=== PATIENT | female | born 1935 | race Caucasian/White ===

== ENCOUNTER 2017-08-30 14:45 | Observation (INO) | payer MEDICARE ==
[~2017-08-30] VITALS: Ht 165.1 cm; Wt 68.6 kg
[2017-08-30 14:47] VITALS: BP 118/63; PULSE 69; RESP 16; TEMP 97.3; O2SAT 94
[2017-08-30] MEDS ORDERED: SODIUM CHLORIDE 0.9% FLUSH 10 ML FLUSH IV FLUSH PRN ×2 (15:15→17:30)
[2017-08-30] MEDS ORDERED: FAMOTIDINE 20 MG/2 ML VIAL IV PUSH ONE (15:15)
[2017-08-30] MEDS ORDERED: ONDANSETRON ODT 4 MG TAB PO ONE (15:15)
[2017-08-30] MEDS ORDERED: SODIUM CHLOR 0.9% 1000 ML INJ 1,000 ML IV SCH (15:15)
--- NOTE | 2017-08-30 15:33 | PD ---
HPI Chief Complaint: General Weakness Time Seen by Provider: 14:59 Travel History International Travel<30 days: No Contact w/Intl Traveler<30days: No Traveled to known affect area: No History of Present Illness HPI 82-year-old female complains of abdominal pain, nausea vomiting diarrhea. Patient states that the symptoms started 6 days ago. Patient states that abdominal pain cramping pain diffuse over the abdomen. Patient denies any pain radiation. Patient denies any fever chills. Patient denies any headache. Patient denies any chest pain or shortness of breath. Patient states that she has occasionally vomiting however mostly the severe nausea and diarrhea. Patient states that she noticed occasionally blood in the stool. Patient denies any back pain. Patient denies any vaginal discharge or bleeding. Patient states that she had generally malaise and weakness. Patient states that she has been using [id number] Imodium without relief. On a scale of 1-10 the pain is an 8. PFSH Past Medical History ?: Not Social History Tobacco Use: No Allergies-Medications (Allergen,Severity, Reaction): Coded Allergies: codeine (Verified Adverse Reaction, Unknown, 08/30/17) ABDOMINAL AND CHEST PAIN. Reported Meds & Prescriptions Reported Meds & Active Scripts Active Reported Imodium A-D (Loperamide HCl) 2 Mg Capsule 2 Mg PO DIRECTED PRN One capsule after each loose stool. Not to exceed 8 tablets per day. Hydrochlorothiazide 25 Mg Tab 25 Mg PO DAILY Paroxetine (Paroxetine HCl) 40 Mg Tab 40 Mg PO DAILY Vitamin E 200 Unit Cap 400 Units PO DAILY Donepezil 10 Mg Tab 10 Mg PO HS Calcium 500 +D (Calcium Carbonate-Cholecalciferol) 500-400 Mg-Unit Tab 1 Tab PO DAILY Metoprolol Succinate ER 24 HR (Metoprolol Succinate) 200 Mg Tab 200 Mg PO DAILY Gemfibrozil 600 Mg Tab 600 Mg PO BIDAC Take 30 minutes prior to breakfast and dinner. Review of Systems General / Constitutional: No: Fever Eyes: No: Visual changes HENT: No: Headaches Cardiovascular: No: Chest Pain or Discomfort Respiratory: No: Shortness of Breath Gastrointestinal: Positive: Nausea, Vomiting, Diarrhea, Abdominal Pain Genitourinary: No: Dysuria Musculoskeletal: No: Pain Skin: No Rash Neurologic: No: Weakness Psychiatric: No: Depression Endocrine: No: Polydipsia Hematologic/Lymphatic: No: Easy Bruising Physical Exam Narrative GENERAL: Well-nourished, well-developed patient. SKIN: Focused skin assessment warm/dry. HEAD: Normocephalic. EYES: No scleral icterus. No injection or drainage. NECK: Supple, trachea midline. No JVD or lymphadenopathy. CARDIOVASCULAR: Regular rate and rhythm without murmurs, gallops, or rubs. RESPIRATORY: Breath sounds equal bilaterally. No accessory muscle use. GASTROINTESTINAL: Abdomen soft, nondistended. Patient has mild diffuse tenderness over the abdomen. No rebound tenderness. No mass. Rectal exam Hemoccult trace positive. MUSCULOSKELETAL: No cyanosis, or edema. BACK: Nontender without obvious deformity. No CVA tenderness. Neurologic exam normal. Data Data Last Documented VS Vital Signs Date Time Temp Pulse Resp B/P (MAP) Pulse Ox O2 Delivery O2 Flow Rate FiO2 08/30/17 17:13 67 16 113/60 (77) 96 Room Air 08/30/17 14:47 97.3 Orders Orders Complete Blood Count With Diff (08/30/17 15:15) Comprehensive Metabolic Panel (08/30/17 15:15) Lipase (08/30/17 15:15) Prothrombin Time / Inr (Pt) (08/30/17 15:15) Act Partial Throm Time (Ptt) (08/30/17 15:15) Urinalysis - C+S If Indicated (08/30/17 15:15) Iv Access Insert/Monitor (08/30/17 15:15) Ecg Monitoring (08/30/17 15:15) Oximetry (08/30/17 15:15) Sodium Chlor 0.9% 1000 Ml Inj (Ns 1000 M (08/30/17 15:15) Sodium Chloride 0.9% Flush (Ns Flush) (08/30/17 15:15) Famotidine Inj (Pepcid Inj) (08/30/17 15:15) Ondansetron Odt (Zofran Odt) (08/30/17 15:15) Potassium Chloride (Kcl) (08/30/17 16:00) Potassium Chlor 20 Meq Premix (Kcl 20 Me (08/30/17 16:00) Ct Abd/Pel W/O Iv Contrast (08/30/17 16:50) Place In Observation (08/30/17 ) Vital Signs (Adult) Q4H (08/30/17 17:26) Neuro Checks Q4H (08/30/17 17:26) Activity Oob With Assistance (08/30/17 17:26) Diet Regular Basic (08/30/17 Dinner) Sodium Chlor 0.9% 1000 Ml Inj (Ns 1000 M (08/30/17 17:26) Sodium Chloride 0.9% Flush (Ns Flush) (08/30/17 17:30) Sodium Chloride 0.9% Flush (Ns Flush) (08/30/17 21:00) Acetaminophen (Tylenol) (08/30/17 17:30) Metoclopramide Inj (Reglan Inj) (08/30/17 17:30) Basic Metabolic Panel (Bmp) (08/31/17 06:00) Complete Blood Count With Diff (08/31/17 06:00) Pt Request For Service (08/30/17 17:26) Scd Bilateral/Knee High DECLAN.BID (08/30/17 17:26) Naloxone Inj (Narcan Inj) (08/30/17 17:30) Magnesium Hydroxide Liq (Milk Of Magnesi (08/30/17 17:30) Giardia Antigen (Stool) (08/30/17 17:30) C Diff Toxin Pcr (08/30/17 17:30) Enteric Path (Stool) (08/30/17 17:30) Admit Order (Ed Use Only) (08/30/17 17:34) Labs Laboratory Tests Test 08/30/17 15:20 White Blood Count 4.0 TH/MM3 Red Blood Count 4.27 MIL/MM3 Hemoglobin 12.4 GM/DL Hematocrit 37.7 % Mean Corpuscular Volume 88.3 FL Mean Corpuscular Hemoglobin 29.1 PG Mean Corpuscular Hemoglobin Concent 32.9 % Red Cell Distribution Width 12.3 % Platelet Count 206 TH/MM3 Mean Platelet Volume 8.8 FL CBC Comment AUTO DIFF Differential Total Cells Counted 100 Neutrophils % (Manual) 64 % Band Neutrophils % 7 % Lymphocytes % 11 % Monocytes % 18 % Neutrophils # (Manual) 2.8 TH/MM3 Differential Comment FINAL DIFF MANUAL Platelet Estimate NORMAL Platelet Morphology Comment NORMAL Prothrombin Time 11.7 SEC Prothromb Time International Ratio 1.2 RATIO Activated Partial Thromboplast Time 28.5 SEC Blood Urea Nitrogen 28 MG/DL Creatinine 1.30 MG/DL Random Glucose 117 MG/DL Total Protein 8.7 GM/DL Albumin 4.0 GM/DL Calcium Level 9.8 MG/DL Alkaline Phosphatase 81 U/L Aspartate Amino Transf (AST/SGOT) 44 U/L Alanine Aminotransferase (ALT/SGPT) 24 U/L Total Bilirubin 0.8 MG/DL Sodium Level 134 MEQ/L Potassium Level 2.6 MEQ/L Chloride Level 98 MEQ/L Carbon Dioxide Level 25.8 MEQ/L Anion Gap 10 MEQ/L Estimat Glomerular Filtration Rate 39 ML/MIN Lipase 212 U/L [facility] Medical Decision Making Medical Screen Exam Complete: Yes Emergency Medical Condition: Yes Interpretation(s) Last Impressions Abdomen/Pelvis CT 08/30/17 1650 Signed Impressions: CONCLUSION: 1. Scattered air-fluid levels very nonspecific otherwise negative. 2. Do not see evidence for inflammatory changes 3. Do not see ascites. 1721 PM. CBC WBC 4.0. Hemoglobin 12.4 hematocrit 37.7. Normal differential. Potassium 2.6. BUN 28. Creatinine 1.30. AST 44. Differential Diagnosis Differential diagnosis including gastroenteritis, colitis, dehydration, electrolyte imbalance Narrative Course 82-year-old female complains of abdominal pain with nausea vomiting diarrhea. Normal saline solution 1 L IV bolus. KCl 40 mEq p.o. given. KCl 20 mEq IV given. Diagnosis Primary Impression: Gastroenteritis Additional Impressions: Hypokalemia Acute kidney injury Admitting Information Admitting Physician Requests: Observation Scripts Potassium Chloride ER (Potassium Chloride ER) 10 Meq Cap 10 MEQ PO DAILY for supplementation for 30 Days, #30 CAP Prov: Concepción Rene 09/01/17 Pantoprazole (Pantoprazole) 40 Mg Tab 40 MG PO DAILY for GI prophylaxis for 14 Days, #14 TAB Prov: Concepción Rene 09/01/17 Kevon Hardin MD Aug 30, 2017 15:33
[2017-08-30] MEDS ORDERED: PARO40TA2 PO (15:42)
[2017-08-30] MEDS ORDERED: HYDR25TA5 PO (15:42)
[2017-08-30] MEDS ORDERED: LOPE-1 PO (15:42)
[2017-08-30] MEDS ORDERED: CALC1TAB12 PO (15:42)
[2017-08-30] MEDS ORDERED: DONE10TA7 PO (15:42)
[2017-08-30] MEDS ORDERED: GEMF600T PO (15:42)
[2017-08-30] MEDS ORDERED: METO-393 PO (15:42)
[2017-08-30] MEDS ORDERED: VITA200C3 PO (15:42)
[2017-08-30 15:46] LABS: HEMATOCRIT 37.7 % (35.0-46.0); HEMOGLOBIN 12.4 GM/DL (11.6-15.3); MEAN CELL VOLUME 88.3 FL (80.0-100.0); MEAN CORPUSCULAR HEMOGLOBIN 29.1 PG (27.0-34.0); MEAN CORPUSCULAR HGB CONC 32.9 % (32.0-36.0); MEAN PLATELET VOLUME 8.8 FL (7.0-11.0); PLATELET COUNT 206 TH/MM3 (150-450); RED BLOOD COUNT 4.27 MIL/MM3 (4.00-5.30); RED CELL DISTRIBUTION WIDTH 12.3 % (11.6-17.2)
[2017-08-30 15:51] VITALS: BP 114/65; PULSE 65; RESP 18; O2SAT 95
[2017-08-30 15:51] LABS: BICARBONATE 25.8 MEQ/L (21.0-32.0); BLOOD UREA NITROGEN 28 MG/DL (7-18); CALCIUM 9.8 MG/DL (8.5-10.1); CHLORIDE 98 MEQ/L (98-107); GLUCOSE,RANDOM 117 MG/DL (74-106); SODIUM (NA) 134 MEQ/L (136-145)
[2017-08-30 15:52] LABS: INTERNATIONAL NORMALIZED RATIO 1.2 RATIO; PROTHROMBIN TIME - PATIENT 11.7 SEC (9.8-11.6)
[2017-08-30] MEDS ORDERED: POTASSIUM CHLORIDE 20 MEQ CONTROLLED RELEASE TAB PO ONE (16:00)
[2017-08-30] MEDS ORDERED: POTASSIUM CHLOR 20 MEQ PREMIX 100 ML IV ONE (16:00)
[2017-08-30 16:20] LABS: BANDS 7 % (0-6); LYMPHOCYTES 11 % (9-44); MONOCYTES 18 % (0-8); NEUTROPHIL # MANUAL DIFF 2.8 TH/MM3 (1.8-7.7); POLYS (SEG NEUTROPHILS) 64 % (16-70)
[2017-08-30 16:48] LABS: ALKALINE PHOSPHATASE 81 U/L (45-117); ALT (GPT) 24 U/L (10-53); AST (GOT) 44 U/L (15-37); GLOMERULAR FILTRATION RATE 39 ML/MIN (>89); TOTAL BILIRUBIN ADULT 0.8 MG/DL (0.2-1.0); TOTAL PROTEIN 8.7 GM/DL (6.4-8.2)
--- NOTE | 2017-08-30 17:12 | RADRPT ---
EXAM DATE: 08/30/2017 5:07 PM EDT AGE/SEX: 82 years / Female INDICATIONS: Diffuse abdominal pain. Nausea, vomiting, diarrhea and weakness. CLINICAL DATA: This is the patient's initial encounter. Patient reports that signs and symptoms have been present for 4 - 6 days and indicates a pain score of 8/10. MEDICAL/SURGICAL HISTORY: Hypercholesterolemia. Hypertension. Dementia. None. RADIATION DOSE: 13.07 CTDI (mGy) COMPARISON: No prior exams available for comparison. TECHNIQUE: Multiple contiguous axial images were obtained through the abdomen. Images were obtained using multiple row detector helical technique. Using dose reduction techniques, radiation dose was ke pt as low as reasonably achievable to obtain optimal diagnostic quality images. FINDINGS: The lower lungs are clear. There is no pericardial effusion The liver is free of focal defects. There are no gallstones identified by CT Pancreas and spleen appear normal Adrenal glands are unremarkable Right and left kidneys appear normal There are no inflammatory changes in the abdomen In the pelvis there are scattered air-fluid levels present in the colon in a nonspecific fashion. There are no inflammatory changes. There is no free air. There is no free fluid Extensive vascular calcifications are noted Degenerative changes are seen in the lower lumbar spine and both SI joints Total hip create significant artifact across the pelvis. CONCLUSION: 1. Scattered air-fluid levels very nonspecific otherwise negative. 2. Do not see evidence for inflammatory changes 3. Do not see ascites. Electronically signed by: Andre Yoo MD 08/30/2017 5:10 PM EDT
[2017-08-30 17:13] VITALS: BP 113/60; PULSE 67; RESP 16; O2SAT 96
[2017-08-30] MEDS ORDERED: NALOXONE HCL 0.4 MG/ML AMP IV PUSH PRN (17:30)
[2017-08-30] MEDS ORDERED: MAGNESIUM HYDROXIDE SUSP 30 ML CUP PO PRN (17:30)
[2017-08-30] MEDS ORDERED: ACETAMINOPHEN 325 MG TAB PO PRN (17:30)
[2017-08-30] MEDS ORDERED: METOCLOPRAMIDE HCL 10 MG/2 ML VIAL IV PUSH PRN (17:30)
[2017-08-30] MEDS: SODIUM CHLOR 0.9% 1000 ML INJ 1,000 ML IV SCH (17:51)
[2017-08-30 19:23] VITALS: BP 120/70
[2017-08-30 20:00] VITALS: BP 117/55; PULSE 61; PULSE 63; RESP 20; TEMP 97.3; O2SAT 96
[2017-08-30] MEDS: SODIUM CHLORIDE 0.9% FLUSH 10 ML FLUSH IV FLUSH SCH (21:00)
[2017-08-31] VITALS (7 sets, daily range): BP systolic 121–141; BP diastolic 60–75; PULSE 58–78; RESP 20; TEMP 96.1–98.4; O2SAT 94–98
[2017-08-31] MEDS: SODIUM CHLOR 0.9% 1000 ML INJ 1,000 ML IV SCH ×3 (03:03→23:48)
[2017-08-31 07:32] LABS: HEMATOCRIT 30.9 % (35.0-46.0); HEMOGLOBIN 10.8 GM/DL (11.6-15.3); MEAN CELL VOLUME 86.2 FL (80.0-100.0); MEAN CORPUSCULAR HEMOGLOBIN 30.1 PG (27.0-34.0); MEAN CORPUSCULAR HGB CONC 34.9 % (32.0-36.0); MEAN PLATELET VOLUME 9.1 FL (7.0-11.0); PLATELET COUNT 155 TH/MM3 (150-450); RED BLOOD COUNT 3.58 MIL/MM3 (4.00-5.30); RED CELL DISTRIBUTION WIDTH 12.4 % (11.6-17.2); WHITE BLOOD COUNT 2.8 TH/MM3 (4.0-11.0)
[2017-08-31 07:48] LABS: BICARBONATE 26.5 MEQ/L (21.0-32.0); CALCIUM 8.7 MG/DL (8.5-10.1); CREATININE 0.68 MG/DL (0.50-1.00)
--- NOTE | 2017-08-31 08:34 | HHI.HP ---
[facility] Service [facility] Primary Care Physician Toribio Hoff MD Admission Diagnosis Gastroenteritis. Hypokalemia. Acute kidney injury. Diagnoses: (1) Acute kidney injury (2) Gastroenteritis (3) Hypokalemia Chief Complaint: Abdominal pain Nausea and vomiting Diarrhea Travel History International Travel<30 Days: No Contact w/Intl Traveler <30 Da: No Traveled to Known Affected Are: No History of Present Illness This is a pleasant 82-year-old female patient with a known medical history of hypertension, hyperlipidemia and depression who presented to the ED with complaints of abdominal pain, nausea, vomiting and diarrhea 6 days. Patient states that last week she noticed her cramping began diffusely over her abdomen and has been unable to keep anything down for the past 5 days. Patient states that the pain in her abdomen is cramping in nature, rated 8 out of 10 on its worst on pain scale, and intermittently came and gone throughout the week. Patient does admit to recent blood in her stool, denies any black stools. Does admit to subjective fevers and chills at home although did not check her temperature. Does not follow with a instrument repair specialist. Denies ever having a colonoscopy or EGD in the past. Denies any recent antibiotic use. Denies any recent chest pain, shortness of breath, dysuria. Patient does state that she has been taking Imodium at home for the diarrhea which has been ineffective. PCP is Dr. Hoff, patient denies any new changes to her medicines. Upon presentation hemoglobin is stable although has dropped from 12.4-10.8 overnight. All symptoms have improved with resolution of abdominal pain and no further nausea or vomiting. Patient has been tolerating p.o. intake this morning. Denies any further bleeding in her stool. Review of Systems Constitutional: COMPLAINS OF: Fatigue, Fever, Chills, DENIES: Diaphoretic episodes Eyes: DENIES: Blurred vision, Diplopia, Eye pain Respiratory: DENIES: Cough, Sputum production, Shortness of breath Cardiovascular: DENIES: Chest pain, Palpitations Gastrointestinal: COMPLAINS OF: Abdominal pain, Bloody stools, Diarrhea, Nausea , Vomiting, DENIES: Black stools, Constipation Musculoskeletal: DENIES: Joint pain Hematologic/lymphatic: DENIES: Bruising Psychiatric: COMPLAINS OF: Anxiety Except as stated in HPI: all other systems reviewed are Neg Past Family Social History Past Medical History Hypertension Depression Hyperlipidemia Past Surgical History Left bunion repair Right hip replacement Bilateral knee replacement Bilateral carpal tunnel repair Right forearm skin cancer removal Reported Medications Active Reported Imodium A-D (Loperamide HCl) 2 Mg Capsule 2 Mg PO DIRECTED PRN One capsule after each loose stool. Not to exceed 8 tablets per day. Hydrochlorothiazide 25 Mg Tab 25 Mg PO DAILY Paroxetine (Paroxetine HCl) 40 Mg Tab 40 Mg PO DAILY Vitamin E 200 Unit Cap 400 Units PO DAILY Donepezil 10 Mg Tab 10 Mg PO HS Calcium 500 +D (Calcium Carbonate-Cholecalciferol) 500-400 Mg-Unit Tab 1 Tab PO DAILY Metoprolol Succinate ER 24 HR (Metoprolol Succinate) 200 Mg Tab 200 Mg PO DAILY Gemfibrozil 600 Mg Tab 600 Mg PO BIDAC Take 30 minutes prior to breakfast and dinner. Allergies: Coded Allergies: codeine (Verified Adverse Reaction, Unknown, 08/30/17) ABDOMINAL AND CHEST PAIN. Active Ordered Medications Current Medications Medications (Trade) Dose Ordered Sig/Elaine Route Start Time Stop Time Status Last Admin Sodium Chloride 1,000 ml @ 100 mls/hr Q10H IV 08/30/17 17:26 08/31/17 03:03 (NS Flush) 2 ml UNSCH PRN IV FLUSH 08/30/17 17:30 (NS Flush) 2 ml BID IV FLUSH 08/30/17 21:00 08/31/17 09:45 (Tylenol) 650 mg Q4H PRN PO 08/30/17 17:30 (Reglan Inj) 5 mg Q6H PRN IV PUSH 08/30/17 17:30 (Narcan Inj) 0.4 mg UNSCH PRN IV PUSH 08/30/17 17:30 (Milk Of Magnesia Liq) 30 ml Q12H PRN PO 08/30/17 17:30 (Aricept) 10 mg HS PO 08/31/17 21:00 (Lopid) 600 mg BIDAC PO 08/31/17 16:00 (Hydrodiuril) 25 mg DAILY PO 08/31/17 09:00 08/31/17 09:44 (Paxil) 40 mg DAILY PO 08/31/17 09:00 08/31/17 09:44 (Oscal-D 250-125) 250 mg DAILY PO 08/31/17 09:00 08/31/17 09:44 (Toprol Xl) 200 mg DAILY PO 08/31/17 09:00 08/31/17 09:43 (Colyte Liq) 4,000 ml ONCE ONCE PO 08/31/17 16:00 08/31/17 16:01 Family History Denies any significant family medical history. Social History Denies any tobacco, alcohol or illicit drug use. Physical Exam Vital Signs Vital Signs Date Time Temp Pulse Resp B/P (MAP) Pulse Ox O2 Delivery O2 Flow Rate FiO2 08/31/17 07:17 96.5 75 20 141/63 (89) 94 08/31/17 04:00 98.4 58 20 95 08/31/17 00:00 96.1 60 20 133/63 (86) 98 08/30/17 20:00 97.3 63 20 117/55 (75) 96 08/30/17 20:00 61 08/30/17 19:23 69 16 120/70 (87) 96 08/30/17 17:13 67 16 113/60 (77) 96 Room Air 08/30/17 15:51 65 18 114/65 (81) 95 Room Air 08/30/17 15:29 96 Room Air 08/30/17 15:29 Room Air 08/30/17 14:47 97.3 69 16 118/63 (81) 94 Physical Exam GENERAL: Well-developed, well-nourished patient in [facility]. SKIN: Warm and dry. No rash. Pale. HEAD: Normocephalic. Atraumatic. EYES: Pupils equal and round. No scleral icterus. No injection or drainage. ENT: No nasal bleeding or discharge. Mucous membranes pink and moist. NECK: Supple. Trachea midline. CARDIOVASCULAR: Regular rate and rhythm. S1, S2 noted. No murmur appreciated. RESPIRATORY: No accessory muscle use. Clear to auscultation. Breath sounds equal bilaterally. GASTROINTESTINAL: Abdomen soft, non-tender, nondistended. Normoactive bowel sounds x4. MUSCULOSKELETAL: No obvious deformities. Extremities without clubbing, cyanosis , or edema. NEUROLOGICAL: Awake and alert. No obvious cranial nerve deficits. Motor grossly within normal limits. 5/5 muscle strength in bilateral upper and lower extremities. Normal speech. PSYCHIATRIC: Appropriate mood and affect; insight and judgment normal. Laboratory Laboratory Tests Test 08/30/17 15:20 08/31/17 06:07 White Blood Count 4.0 2.8 Red Blood Count 4.27 3.58 Hemoglobin 12.4 10.8 Hematocrit 37.7 30.9 Mean Corpuscular Volume 88.3 86.2 Mean Corpuscular Hemoglobin 29.1 30.1 Mean Corpuscular Hemoglobin Concent 32.9 34.9 Red Cell Distribution Width 12.3 12.4 Platelet Count 206 155 Mean Platelet Volume 8.8 9.1 CBC Comment AUTO DIFF AUTO DIFF Differential Total Cells Counted 100 Neutrophils % (Manual) 64 Band Neutrophils % 7 Lymphocytes % 11 Monocytes % 18 Neutrophils # (Manual) 2.8 Differential Comment FINAL DIFF MANUAL Platelet Estimate NORMAL Platelet Morphology Comment NORMAL Prothrombin Time 11.7 Prothromb Time International Ratio 1.2 Activated Partial Thromboplast Time 28.5 Blood Urea Nitrogen 28 20 Creatinine 1.30 0.68 Random Glucose 117 98 Total Protein 8.7 Albumin 4.0 Calcium Level 9.8 8.7 Alkaline Phosphatase 81 Aspartate Amino Transf (AST/SGOT) 44 Alanine Aminotransferase (ALT/SGPT) 24 Total Bilirubin 0.8 Sodium Level 134 140 Potassium Level 2.6 2.9 Chloride Level 98 106 Carbon Dioxide Level 25.8 26.5 Anion Gap 10 8 Estimat Glomerular Filtration Rate 39 83 Lipase 212 Result Diagram: 08/31/17 0607 08/31/17 0607 Imaging Last Impressions Abdomen/Pelvis CT 08/30/17 1650 Signed Impressions: CONCLUSION: 1. Scattered air-fluid levels very nonspecific otherwise negative. 2. Do not see evidence for inflammatory changes 3. Do not see ascites. Septic Shock Reassessment Septic shock perfusion: reassessment completed Caprini VTE Risk Assessment Caprini VTE Risk Assessment: Mod/High Risk (score >= 2) Caprini Risk Assessment Model Point Value = 1 Point Value = 2 Point Value = 3 Point Value = 5 Age 41-60 Minor surgery BMI > 25 kg/m2 Swollen legs Varicose veins or History of unexplained or recurrent spontaneous Oral contraceptives or hormone replacement Sepsis (< 1 month) Serious lung disease, including pneumonia (< 1 month) Abnormal pulmonary function Acute myocardial infarction Congestive heart failure (< 1 month) History of inflammatory bowel disease Medical patient at bed rest Age 61-74 Arthroscopic surgery Major open surgery (> 45 min) Laparoscopic surgery (> 45 min) Malignancy Confined to bed (> 72 hours) Immobilizing plaster cast Central venous access Age >= 75 History of VTE Family history of VTE Factor V Leiden Prothrombin [id number] Lupus anticoagulant Anticardiolipin antibodies Elevated serum homocysteine Heparin-induced thrombocytopenia Other congenital or acquired thrombophilia Stroke (< 1 month) Elective arthroplasty Hip, pelvis, or leg fracture Acute spinal cord injury (< 1 month) Prophylaxis Regimen Total Risk Factor Score Risk Level Prophylaxis Regimen 0-1 Low Early ambulation 2 Moderate Order ONE of the following: *Sequential Compression Device (SCD) *Heparin 5000 units SQ BID 3-4 Higher Order ONE of the following medications: *Heparin 5000 units SQ TID *Enoxaparin/Lovenox 40 mg SQ daily (WT < 150 kg, CrCl > 30 mL/min) *Enoxaparin/Lovenox 30 mg SQ daily (WT < 150 kg, CrCl > 10-29 mL/min) *Enoxaparin/Lovenox 30 mg SQ BID (WT < 150 kg, CrCl > 30 mL/min) AND/OR *Sequential Compression Device (SCD) 5 or more Highest Order ONE of the following medications: *Heparin 5000 units SQ TID (Preferred with Epidurals) *Enoxaparin/Lovenox 40 mg SQ daily (WT < 150 kg, CrCl > 30 mL/min) *Enoxaparin/Lovenox 30 mg SQ daily (WT < 150 kg, CrCl > 10-29 mL/min) *Enoxaparin/Lovenox 30 mg SQ BID (WT < 150 kg, CrCl > 30 mL/min) AND *Sequential Compression Device (SCD) Assessment and Plan Problem List: (1) Gastroenteritis ICD Code: K52.9 - Noninfective gastroenteritis and colitis, unspecified Status: Acute (2) Hypokalemia ICD Code: E87.6 - Hypokalemia Status: Acute (3) Acute kidney injury ICD Code: N17.9 - Acute kidney failure, unspecified Status: Acute Assessment and Plan This is a pleasant 82-year-old female patient with a known medical history of hypertension, hyperlipidemia and depression who presented to the ED with complaints of abdominal pain, nausea, vomiting and diarrhea 6 days. Patient states that last week she noticed her cramping began diffusely over her abdomen and has been unable to keep anything down for the past 5 days. Gastroenteritis with abdominal pain, nausea and vomiting and diarrhea Acute kidney injury suspect secondary to above Severe hypokalemia suspect secondary to above - Abdominal/pelvis CT reviewed showing scattered air-fluid levels nonspecific, no inflammatory changes. No ascites. No acute change. - Stool cultures ordered, pending. - Ensure hydration, continue IV fluid. Encourage p.o. intake as tolerated. - Potassium 2.6 on presentation, was given replacement now is 2.9 today. Will order for more replacement. Follow BMP. - Creatinine 1.3 on presentation, improved to 0.60. Blood in stools rule out GI bleed - Hemoglobin 12.4/hematocrit 37.4 upon presentation, today hemoglobin dropped to 10.8/hematocrit 30.9. - Order for Hemoccult stool. Follow. - Gastroenterology consulted, appreciate input recommendations. Plan for colonoscopy tomorrow. GoLYTELY prep tonight. Hypertension, chronic: Will continue home medications. Monitor blood pressure trends. DVT prophylaxis: SCDs. Hold chemical prophylaxis for possible GI bleed. Concepción Rene Aug 31, 2017 08:34
[2017-08-31] MEDS ORDERED: POTASSIUM CHLORIDE 20 MEQ CONTROLLED RELEASE TAB PO ONE (08:45)
[2017-08-31] MEDS ORDERED: VITAMIN E 400 UNIT PO SCH (09:00)
[2017-08-31] MEDS: METOPROLOL SUCCINATE 50 MG EXTENDED RELEASE TAB PO SCH (09:43)
[2017-08-31] MEDS: POTASSIUM CHLOR 20 MEQ PREMIX 100 ML IV SCH ×2 (09:43→13:24)
[2017-08-31] MEDS: CALCIUM/VITAMIN D 250 MG/125 U TAB PO SCH (09:44)
[2017-08-31] MEDS: HYDROCHLOROTHIAZIDE 25 MG TAB PO SCH (09:44)
[2017-08-31] MEDS: PARoxetine HCL 20 MG TAB PO SCH (09:44)
[2017-08-31] MEDS: SODIUM CHLORIDE 0.9% FLUSH 10 ML FLUSH IV FLUSH SCH ×2 (09:45→19:27)
[2017-08-31 09:52] LABS: BANDS 15 % (0-6); LYMPHOCYTES 23 % (9-44); MONOCYTES 14 % (0-8); NEUTROPHIL # MANUAL DIFF 1.7 TH/MM3 (1.8-7.7); POLYS (SEG NEUTROPHILS) 46 % (16-70)
--- NOTE | 2017-08-31 15:17 | MB ---
cc: Yumiko Gleason MD DATE: 08/31/2017 REASON FOR REFERRAL: Abdominal pain, nausea, vomiting, diarrhea. Thank you for the consultation. HISTORY OF PRESENT ILLNESS: This is an 82-year-old lady who has been doing okay. The patient never had GI problems. She never had any endoscopy or colonoscopy in the past. The patient has occasional blood in the stool and apparently in the last almost 6 days, she came with significant nausea, vomiting and abdominal pain. She also has diarrhea, her pain was about 7-8/10 in a diffuse abdomen, but more in the midepigastric area. The patient also has 4-5 watery bowels in the last few days. Today, patient is feeling better. No nausea or vomiting. Her diarrhea subsided and feeling almost back to normal. She took Imodium initially when she started, but it was not relieving in her symptoms. ALLERGIES: CODEINE. MEDICATION: Reviewed in the chart. PAST MEDICAL HISTORY: Negative. PHYSICAL EXAMINATION: GENERAL: Alert, oriented, in no acute distress. VITAL SIGNS: Stable. HEENT: Pupils are reactive to light. NECK: Supple. CHEST: Clear to auscultation and percussion. CARDIAC: Regular rate and rhythm. No murmur or gallops. ABDOMEN: Soft, nondistended. Positive bowel sounds. EXTREMITIES: No edema, clubbing or cyanosis. NEUROLOGIC: Intact. Nonfocal abnormality. PSYCHOLOGICAL: Appropriate. PAST MEDICAL HISTORY: Significant for hyperlipidemia and hypertension. LABORATORY DATA: Sodium 140, potassium 2.9, BUN 20; creatinine 0.68, down from 1.3; AST 44, ALT 24, albumin 4.0, lipase 212. INR 1.2. IMAGING STUDIES: CT of the abdomen showed some air fluid levels in the small bowel. No other abnormality. ASSESSMENT AND PLAN: An 82-year-old lady who has what it looked like an acute viral illness with nausea, vomiting, diarrhea, abdominal pain; seems to be resolving. We will continue hydration since it seems that she had prerenal acute renal insufficiency. 1. Anemia, questionable etiology. The patient never had an upper endoscopy and colonoscopy. The patient can have endoscopy and colonoscopy. She is agreeable to have it done. We will plan on doing that tomorrow. 2. Mild elevation of her liver function tests could be related to viral illness. We will repeat liver function tests tomorrow. 3. Hypokalemia. We will replace potassium. MD LEX Lynn/SY , 11:42 AM , 03:15 PM
[2017-08-31] MEDS ORDERED: PEG (High)/E-LYTE SOLN 4000 ML BTL PO ONE (16:00)
[2017-08-31] MEDS: GEMFIBROZIL 600 MG TAB PO SCH (17:03)
[2017-08-31] MEDS ORDERED: DONEPEZIL HCL 5 MG TAB PO SCH (21:00)
[2017-09-01] VITALS: BP 131/68; PULSE 60; RESP 20; TEMP 97.4; O2SAT 97
[2017-09-01] MEDS: GEMFIBROZIL 600 MG TAB PO SCH ×2 (05:02→10:16)
[2017-09-01 07:21] VITALS: BP 134/66; PULSE 64; RESP 20; TEMP 97.2; O2SAT 97
[2017-09-01 07:35] LABS: HEMATOCRIT 36.6 % (35.0-46.0); HEMOGLOBIN 12.1 GM/DL (11.6-15.3); MEAN CELL VOLUME 88.4 FL (80.0-100.0); MEAN CORPUSCULAR HEMOGLOBIN 29.2 PG (27.0-34.0); MEAN CORPUSCULAR HGB CONC 33.1 % (32.0-36.0); MEAN PLATELET VOLUME 8.7 FL (7.0-11.0); PLATELET COUNT 213 TH/MM3 (150-450); RED BLOOD COUNT 4.14 MIL/MM3 (4.00-5.30); RED CELL DISTRIBUTION WIDTH 12.1 % (11.6-17.2); WHITE BLOOD COUNT 4.4 TH/MM3 (4.0-11.0)
[2017-09-01 08:03] LABS: ALBUMIN 3.5 GM/DL (3.4-5.0); ALKALINE PHOSPHATASE 66 U/L (45-117); ALT (GPT) 22 U/L (10-53); AST (GOT) 39 U/L (15-37); BICARBONATE 28.9 MEQ/L (21.0-32.0); BLOOD UREA NITROGEN 12 MG/DL (7-18); CALCIUM 9.2 MG/DL (8.5-10.1); CHLORIDE 99 MEQ/L (98-107); CREATININE 0.58 MG/DL (0.50-1.00); GLOMERULAR FILTRATION RATE 100 ML/MIN (>89); GLUCOSE,RANDOM 88 MG/DL (74-106); SODIUM (NA) 135 MEQ/L (136-145); TOTAL BILIRUBIN ADULT 0.5 MG/DL (0.2-1.0); TOTAL PROTEIN 7.8 GM/DL (6.4-8.2)
[2017-09-01] MEDS ORDERED: POTASSIUM CHLORIDE 10 MEQ CONTROLLED RELEASE TAB PO ONE (08:45)
--- NOTE | 2017-09-01 09:03 | PD.PROCEDR ---
GI Procedure PROCEDURE PERFORMED Upper endoscopy with biopsy, colonoscopy with biopsy. INDICATION FOR PROCEDURE Nausea vomiting, diarrhea, anemia PROCEDURE: The procedure, risks and benefits were discussed with Ms. Strauss and informed consent was obtained. Anesthesia sedated her with Diprivan. She was placed in the left lateral decubitus position. EGD: The Pentax videoscope was introduced through the oropharynx and advanced to the second portion of the duodenum under direct visualization. Retroflexion was performed in the stomach. Biopsy from the antrum Colonoscopy: The Pentax videoscope was introduced through the rectum and advanced to cecum which was identified by the ileocecal valve and appendiceal orifice. Retroflexion was performed in the rectum. 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
--- NOTE | 2017-09-01 09:04 | HHI.GIFU ---
Subjective Remarks Patient laying in bed comfortably, denies any symptom of nausea vomiting or diarrhea at this time, tolerated prep Objective Vitals I&O Vital Signs Date Time Temp Pulse Resp B/P (MAP) Pulse Ox O2 Delivery O2 Flow Rate FiO2 09/01/17 07:21 97.2 64 20 134/66 (88) 97 09/01/17 00:00 97.4 60 20 131/68 (89) 97 08/31/17 20:00 97.0 66 20 121/75 (90) 97 08/31/17 15:02 96.6 76 20 132/64 (86) 94 08/31/17 14:31 76 08/31/17 11:02 96.8 78 20 136/60 (85) 94 I/O 08/31/17 08/31/17 08/31/17 09/01/17 09/01/17 09/01/17 07:00 15:00 23:00 07:00 15:00 23:00 Intake Total 1415 ml 240 ml 960 ml 1800 ml Balance 1415 ml 240 ml 960 ml 1800 ml Intake Oral 480 ml 240 ml 960 ml 1800 ml IV Total 935 ml # Voids 3 4 6 # Bowel Movements 4 1 5 8 Laboratory Laboratory Tests Test 09/01/17 06:32 White Blood Count 4.4 Red Blood Count 4.14 Hemoglobin 12.1 Hematocrit 36.6 Mean Corpuscular Volume 88.4 Mean Corpuscular Hemoglobin 29.2 Mean Corpuscular Hemoglobin Concent 33.1 Red Cell Distribution Width 12.1 Platelet Count 213 Mean Platelet Volume 8.7 CBC Comment AUTO DIFF Blood Urea Nitrogen 12 Creatinine 0.58 Random Glucose 88 Total Protein 7.8 Albumin 3.5 Calcium Level 9.2 Alkaline Phosphatase 66 Aspartate Amino Transf (AST/SGOT) 39 Alanine Aminotransferase (ALT/SGPT) 22 Total Bilirubin 0.5 Sodium Level 135 Potassium Level 2.8 Chloride Level 99 Carbon Dioxide Level 28.9 Anion Gap 7 Estimat Glomerular Filtration Rate 100 Date/Time Source Procedure Growth Status 08/31/17 12:30 Stool Stool Stool Occult Blood ([facility]) - Final HEMOCCULT NEGATIVE Complete Physical Exam HEENT: Pupils round and reactive to light; normocephalic; atraumatic; no jaundice. Throat is clear. NECK: Neck is supple, no JVD, no lymphadenopathy. CHEST: Chest is clear to auscultation and percussion. CARDIAC: Regular rate and rhythm with no murmur gallop or rubs. ABDOMEN: Soft, nondistended, nontender; no hepatosplenomegaly; bowel sounds are present in all four quadrants. EXTREMITIES: No clubbing, cyanosis, or edema. SKIN: Normal; no rash; no jaundice. ROLL FILLER: No focal deficits; alert and oriented times three. 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
[2017-09-01] MEDS ORDERED: POTA10CA PO (09:42)
[2017-09-01] MEDS ORDERED: PANT40TA3 PO (09:42)
--- NOTE | 2017-09-01 09:43 | HHI.PR ---
Objective Vitals Vital Signs Date Time Temp Pulse Resp B/P (MAP) Pulse Ox O2 Delivery O2 Flow Rate FiO2 09/01/17 09:02 98.1 57 16 86/41 (56) 96 09/01/17 07:21 97.2 64 20 134/66 (88) 97 09/01/17 00:00 97.4 60 20 131/68 (89) 97 08/31/17 20:00 97.0 66 20 121/75 (90) 97 08/31/17 15:02 96.6 76 20 132/64 (86) 94 08/31/17 14:31 76 08/31/17 11:02 96.8 78 20 136/60 (85) 94 I/O 08/31/17 08/31/17 08/31/17 09/01/17 09/01/17 09/01/17 07:00 15:00 23:00 07:00 15:00 23:00 Intake Total 1415 ml 240 ml 960 ml 1800 ml Balance 1415 ml 240 ml 960 ml 1800 ml Intake Oral 480 ml 240 ml 960 ml 1800 ml IV Total 935 ml # Voids 3 4 6 # Bowel Movements 4 1 5 8 Result Diagram: 09/01/17 0632 09/01/17 0632 A/P Problem List: (1) Gastroenteritis ICD Code: K52.9 - Noninfective gastroenteritis and colitis, unspecified Status: Acute (2) Hypokalemia ICD Code: E87.6 - Hypokalemia Status: Acute (3) Acute kidney injury ICD Code: N17.9 - Acute kidney failure, unspecified Status: Acute Concepción Rene Sep 01, 2017 09:43
--- NOTE | 2017-09-01 09:44 | HHI.DCPOC ---
Discharge Care Plan Diagnosis: (1) Gastritis (2) Anemia (3) Acute kidney injury (4) Gastroenteritis (5) Hypokalemia Goals to Promote Your Health * To prevent worsening of your condition and complications * To maintain your health at the optimal level Directions to Meet Your Goals Take your medications as prescribed Follow your dietary instruction Follow activity as directed Keep your appointments as scheduled Take your immunizations and boosters as scheduled If your symptoms worsen call your PCP, if no PCP go to Urgent Care Center or Emergency Room Smoking is Dangerous to Your Health. Avoid second hand smoke Call the 24-hour hour crisis hotline for domestic abuse at Con[place]pc[place] Rene Sep 01, 2017 09:44
[2017-09-01] MEDS ORDERED: PANTOPRAZOLE SOD 40 MG DELAYED RELEASE TAB PO SCH (10:00)
[2017-09-01 10:06] LABS: BANDS 6 % (0-6); LYMPHOCYTES 21 % (9-44); MONOCYTES 14 % (0-8); MYELOCYTES 1 % (0-0); NEUTROPHIL # MANUAL DIFF 2.6 TH/MM3 (1.8-7.7); POLYS (SEG NEUTROPHILS) 53 % (16-70)
[2017-09-01 10:07] LABS: TOXIC GRANULATION 1+ (NORMAL)
[2017-09-01] MEDS: SODIUM CHLORIDE 0.9% FLUSH 10 ML FLUSH IV FLUSH SCH (10:15)
[2017-09-01] MEDS: POTASSIUM CHLOR 20 MEQ PREMIX 100 ML IV SCH ×2 (10:15→11:20)
[2017-09-01] MEDS: PARoxetine HCL 20 MG TAB PO SCH (10:16)
[2017-09-01] MEDS: CALCIUM/VITAMIN D 250 MG/125 U TAB PO SCH (10:16)
[2017-09-01] MEDS: HYDROCHLOROTHIAZIDE 25 MG TAB PO SCH (10:17)
[2017-09-01] MEDS: METOPROLOL SUCCINATE 50 MG EXTENDED RELEASE TAB PO SCH (10:17)
[2017-09-01] MEDS: SODIUM CHLOR 0.9% 1000 ML INJ 1,000 ML IV SCH (10:18)
[2017-09-01 11:11] VITALS: BP 130/68; PULSE 60; RESP 20; TEMP 97; O2SAT 97
[2017-09-01] MEDS: MAGNESIUM SULFATE 1 GM PREMIX 100 ML IV SCH ×2 (11:19→12:30)
[2017-09-01 15:03] VITALS: BP 126/64; PULSE 65; RESP 20; TEMP 96.6; O2SAT 97
[2017-09-01 16:39] LABS: BICARBONATE 25.9 MEQ/L (21.0-32.0); CALCIUM 9.3 MG/DL (8.5-10.1); CREATININE 0.9 MG/DL (0.50-1.00)
[2017-09-02] MEDS ORDERED: POTASSIUM CHLORIDE 10 MEQ CAP PO SCH (09:00)
== END 2017-09-01 19:15 | disposition home or self-care (01) ==
LOC: PHED 14:45 → PHEDA 17:35 → PH3B 19:08
PROVIDERS: ADMIT Hospitalist; ATTEND Hospitalist
DX: R53.1 Weakness (principal); K29.70 Gastritis, unspecified, without bleeding; D64.9 Anemia, unspecified; N17.9 Acute kidney failure, unspecified; K52.9 Noninfective gastroenteritis and colitis, unspecified; K25.9 Gastric ulcer, unspecified as acute or chronic, without hemorrhage or perforation; E87.6 Hypokalemia; R10.9 Unspecified abdominal pain; R11.2 Nausea with vomiting, unspecified; R53.81 Other malaise; K57.90 Diverticulosis of intestine, part unspecified, without perforation or abscess without bleeding
CPT/HCPCS: 00813; 43239; 45380; 74176; 80048; 80053; 82272; 83690; 83735; 85007; 85027; 85610; 85730; 88305; 88312; 96361; 96365; 96366; 96367; 96368; 96375; 97162; 99285; G0378; G8987; G8988; J3475; J3480; J7030